=== PATIENT | female | born 1965 | race Caucasian/White ===

== ENCOUNTER 2018-12-19 10:43 | Emergency (ER) | payer BC ==
[2018-12-19] MEDS ORDERED: NA CHLORIDE 0.9% 1,000 ML ONE (12:04)
[2018-12-19 12:11] LABS: Absolute Lymphocytes (CBC) 2.2 K/uL (0.7-4.9); Absolute Monocytes 0.5 K/uL (0.1-1.3); Basophils % 0.6 % (0-1.3); Eosinophils % 3.8 % (0-4.4); Hematocrit 42.5 % (36.0-45.0); Lymphocytes % 31.7 % (15.3-44.8); MPV 7.7 fL (7.6-11.3); Monocytes % 7.5 % (3.3-12.3); RBC Red Blood Cell Count 4.34 M/uL (3.86-4.86)
[2018-12-19 12:24] LABS: ALT/SGPT 26 U/L (12-78); AST/SGOT 19 U/L (15-37); Albumin 3.8 g/dL (3.4-5.0); Alkaline Phosphatase 100 U/L (45-117); BUN Blood Urea Nitrogen 10 mg/dL (7-18); Bicarbonate 25 mmol/L (21-32); Bilirubin Direct 0.1 mg/dL (0-0.2); Bilirubin Total 0.4 mg/dL (0.2-1.0); Glucose Level 102 mg/dL (74-106); Lipase 175 U/L (73-393); Protein, Total 7.7 g/dL (6.4-8.2); Sodium Level 140 mmol/L (136-145)
--- NOTE | 2018-12-19 13:24 | RAD REPORT ---
EXAM DESCRIPTION: CT - Angio Aorta For Dissection - 12/19/2018 12:59 pm CLINICAL HISTORY: Chest pain, abdominal pain and distention, shortness of breath COMPARISON: None. TECHNIQUE: Dynamically enhanced 3 mm thick images of the chest, abdomen, and upper pelvis were obtai elke during administration of approximately 150mL Isovue 370 IV contrast. Sagittal and coronal reconst ruction images were generated using MIP and reviewed. Exam utilizes a protocol to evaluate entire cou rse of the aorta. All CT scans are performed using dose optimization technique as appropriate and may include automated exposure control or mA/KV adjustment according to patient size. FINDINGS: Aorta is normal in diameter with no dissection or other acute aortic findings. Reconstruct ion images show no significant findings. Aortic arch is 3 vessel. No origin stenosis. Imaged portions of the subclavian and axillary arteries are unremarkable. Patient has almost no calcifications in th e aorta. Pulmonary arteries are normal as well. No cardiomegaly, pericardial thickening or pericardial effusio n. No mass or infiltrate in the lung parenchyma. No pleural thickening, pleural effusion or pneumothorax . No abnormal mediastinal or hilar mass or lymphadenopathy seen. No chest wall mass or abnormal axillar y lymphadenopathy. Celiac, SMA and renal arteries show no suspicious findings. Solid abdominal viscera and bowel show no significant findings. Patient has bilateral parapelvic cysts. Patient has moderate diverticulosis of the sigmoid and descending colon. No diverticulitis findings. Numerous pelvic floor phleboliths are present. No mass or abnormal lymphadenopathy. No free air, carly e fluid or inflammatory stranding. No urinary bladder abnormality. Uterus and ovaries show no suspic ious findings. No acute bone finding. Mild lower lumbar degenerative changes are present. IMPRESSION: Negative CT scan of the aorta. No acute findings on chest, abdomen and upper pelvis examination.Full findings detailed in the body o f the report.
[2018-12-19 13:42] LABS: Urine Blood 1+ (NEG); Urine Glucose NEGATIVE (NEG); Urine Protein NEGATIVE (NEG)
[2018-12-19] MEDS ORDERED: HYDROMORPHONE HCL 0.5 MG/0.5 ML INJ ONE ×2 (14:20→16:06)
[2018-12-19 15:00] LABS: Protime INR 0.89
--- NOTE | 2018-12-19 15:04 | RAD REPORT ---
EXAM DESCRIPTION: RAD - Chest Single View - 12/19/2018 2:42 pm CLINICAL HISTORY: Abdominal pain, flank pain COMPARISON: May 2015 TECHNIQUE: AP portable chest image was obtained 1439 hours . FINDINGS: Lungs are clear. Heart and vasculature are normal. No measurable pleural effusion and no p neumothorax. No acute bony abnormality seen. No acute aortic findings suspected. IMPRESSION: No acute cardiopulmonary process. No significant interval change.
[2018-12-19 15:13] LABS: NT PRO-BNP 107 pg/mL (<125); Troponin (Emerg Dept Use Only) < 0.02 ng/mL (0.0-0.045)
[2018-12-19] MEDS ORDERED: NICOTINE 21 MG/PAT TD ONE (15:19)
--- NOTE | 2018-12-19 15:56 | ER ---
Nurse's Notes [facility] Name: Ashlyn Saldana Age: 53 yrs Sex: Female : 1965 Arrival Date: 12/19/2018 Time: 10:47 Bed 15 Private MD: Cortez Rodarte Diagnosis: Strain of muscle and tendon of front wall of thorax Presentation: 12/19 10:53 Presenting complaint: Patient states: pain to RUQ, RLQ radiating to right flank that aa5 began 3 days ago. Pt states "I was getting into the bed and I felt a pop and my pain got worse". Transition of care: patient was not received from another setting of care. Onset of symptoms was November 2018. Risk Assessment: Do you want to hurt yourself or someone else? Patient reports no desire to harm self or others. Care prior to arrival: None. 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 - Social history:: Smoking status: Patient uses tobacco products, smokes one pack cigarettes per day. - Ebola Screening: : No symptoms or risks identified at this time. - Family history:: not pertinent. Screenin:45 Abuse screen: Denies threats or abuse. Denies injuries from another. Nutritional jl7 screening: No deficits noted. Tuberculosis screening: No symptoms or risk factors identified. Fall Risk IV access (20 points). Assessment: 11:45 General: Appears in no apparent distress. uncomfortable, Behavior is calm, cooperative, jl7 appropriate for age. Pain: Complains of pain in right low back and right mid back Pain does not radiate. Pain currently is 10 out of 10 on a pain scale. Neuro: Level of Consciousness is awake, alert, obeys commands, Oriented to person, place, time, situation. Cardiovascular: Heart tones present Patient's skin is warm and dry. Respiratory: Airway is patent Respiratory effort is even, unlabored, Respiratory pattern is regular, symmetrical, Breath sounds are clear bilaterally. GI: Bowel sounds present X 4 quads. Abd is soft and non tender X 4 quads. : No signs and/or symptoms were reported regarding the genitourinary system. EENT: No signs and/or symptoms were reported regarding the EENT system. Derm: Skin is pink, warm \\T\\ dry. Musculoskeletal: No signs and/or symptoms reported regarding the musculoskeletal system. 12:45 Reassessment: Patient appears in no apparent distress at this time. Patient and/or jl7 family updated on plan of care and expected duration. Pain level reassessed. Patient is alert, oriented x 3, equal unlabored respirations, skin warm/dry/pink. Patient states symptoms have improved. 14:10 Reassessment: Pt c/o increased pain, requesting additional pain medication, ERD jl7 notified, see [facility] for orders. 15:40 Reassessment: Dr. Nicholas at bedside discussing plan of care. jl7 Vital Signs: 10:54 BP 108 / 88; Pulse 88; Resp 16 S; Temp 98.9(O); Pulse Ox 97% on R/A; Weight 57.61 kg aa5 (R); Height 5 ft. 0 in. (152.40 cm) (R); Pain 10/10; 12:02 BP 111 / 63; Pulse 86; Resp 18; Temp 98.6(O); Pulse Ox 98% on R/A; Pain 10/10; mh5 13:30 Pulse 67; Resp 16 S; Pulse Ox 97% on R/A; jl7 14:13 BP 103 / 55; Pulse 82; Resp 16; Pulse Ox 98% on R/A; Pain 8/10; mh5 10:54 Body Mass Index 24.80 (57.61 kg, 152.40 cm) aa5 ED Course: 10:47 Patient arrived in ED. mr 10:47 Cortez Rodarte MD is Private Physician. mr 10:53 Triage completed. aa5 10:53 Arm band placed on. aa5 10:58 Anam Nicholas MD is Attending Physician. [facility] 11:19 Palumbo, Jahala, RN is Primary Nurse. jl7 11:57 Patient has correct armband on for positive identification. Placed in gown. Bed in low 5 position. Call light in reach. Side rails up X2. Adult w/ patient. Warm blanket given. Pulse ox on. NIBP on. 11:57 Initial lab(s) drawn, by id, sent to lab. Urine collected: clean catch specimen, clear. 5 Inserted saline lock: 22 gauge in right antecubital area, using aseptic technique. Blood collected. 11:58 Basic Metabolic Panel Sent. 5 11:58 Urine Culture Sent. 5 11:58 Basic Metabolic Panel Sent. [facility] 11:58 CBC with Diff Sent. [facility] 11:58 Creatinine for Radiology Sent. [facility] 11:58 Hepatic Function Sent. [facility] 11:58 Lipase Sent. [facility] 12:59 CT Aorta for Dissection In Process Unspecified. EDMS 14:40 Magnesium Sent. [facility] 14:40 NT PRO-BNP Sent. [facility] 14:40 PT-INR Sent. [facility] 14:40 Troponin (emerg Dept Use Only) Sent. [facility] 14:43 XRAY Chest (1 view) In Process Unspecified. EDMS Administered Medications: 12:05 Drug: NS 0.9% 1000 ml Route: IV; Rate: 1 bolus; Site: right antecubital; jl7 12:13 Drug: TORadol 30 mg Route: IVP; Site: right antecubital; jl7 12:45 Follow up: Response: No adverse reaction; Pain is decreased jl7 12:15 Drug: Zofran 4 mg Route: IVP; Site: right antecubital; jl7 12:45 Follow up: Response: No adverse reaction jl7 12:17 Drug: Dilaudid 0.5 mg Route: IVP; Site: right antecubital; jl7 12:45 Follow up: Response: No adverse reaction; Pain is decreased jl7 14:10 Drug: Dilaudid 0.5 mg Route: IVP; Site: right antecubital; jl7 14:14 Drug: Dilaudid 0.5 mg Route: IVP; Site: right antecubital; jl7 15:00 Follow up: Response: No adverse reaction; Pain is decreased jl7 15:16 Drug: Nicotine 21 mg/24 hr 1 patches {Note: Right upper arm.} Route: Transdermal; Site: jl affected area; Outcome: 15:55 Discharge ordered by MD. bruce 16:37 Patient left the ED. iw Signatures: Dispatcher [employer] Anam Luciano MD MD cha Rivera, Kathi Wendy Cochran RN RN iw Calderon, Audri, RN RN Lesly Matthews Jahala, RN RN jl7
--- NOTE | 2018-12-19 15:57 | EDPHYS ---
Physician Documentation [facility] Name: Ashlyn Saldana Age: 53 yrs Sex: Female : 1965 Arrival Date: 12/19/2018 Time: 10:47 Bed 15 Private MD: Cortez Rodarte ED Physician Anam Nicholas HPI: 12/19 12:10 This 53 yrs old Female presents to ER via Wheelchair with complaints of ajnis Abdominal Pain, Back Pain. 12:10 The patient presents with pain that is acute, with no known mechanism of injury. The janis symptoms are located in the low back, right mid back and right low back. Onset: The symptoms/episode began/occurred just prior to arrival. Location: right mid back and right low back. Associated signs and symptoms: The patient has no apparent associated signs or symptoms. The problem was sustained from unknown cause. Modifying factors: The patient symptoms are alleviated by nothing, remaining still, the patient symptoms are aggravated by any movement, coughing, standing, walking. Severity of symptoms: At their worst the symptoms were moderate, in the emergency department the symptoms are unchanged. The patient has not experienced similar symptoms in the past. 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 - Social history:: Smoking status: Patient uses tobacco products, smokes one pack cigarettes per day. - Ebola Screening: : No symptoms or risks identified at this time. - Family history:: not pertinent. ROS: 12:10 Constitutional: Negative for fever, chills, and weight loss, Eyes: Negative for injury, janis pain, redness, and discharge, ENT: Negative for injury, pain, and discharge, Neck: Negative for injury, pain, and swelling, Cardiovascular: Negative for chest pain, palpitations, and edema, Abdomen/GI: Negative for abdominal pain, nausea, vomiting, diarrhea, and constipation, : Negative for injury, bleeding, discharge, and swelling, MS/Extremity: Negative for injury and deformity, Skin: Negative for injury, rash, and discoloration, Neuro: Negative for headache, weakness, numbness, tingling, and seizure, Psych: Negative for depression, anxiety, suicide ideation, homicidal ideation, and hallucinations, Allergy/Immunology: Negative for hives, rash, and allergies, Endocrine: Negative for neck swelling, polydipsia, polyuria, polyphagia, and marked weight changes, Hematologic/Lymphatic: Negative for swollen nodes, abnormal bleeding, and unusual bruising. 12:10 Respiratory: Positive for cough, pleurisy, shortness of breath. 12:10 Back: Positive for pain with movement, flank pain, on the right. Exam: 12:10 Constitutional: This is a well developed, well nourished patient who is awake, alert, janis and in no acute distress. Head/Face: Normocephalic, atraumatic. Eyes: Pupils equal round and reactive to light, extra-ocular motions intact. Lids and lashes normal. Conjunctiva and sclera are non-icteric and not injected. Cornea within normal limits. Periorbital areas with no swelling, redness, or edema. ENT: Nares patent. No nasal discharge, no septal abnormalities noted. Tympanic membranes are normal and external auditory canals are clear. Oropharynx with no redness, swelling, or masses, exudates, or evidence of obstruction, uvula midline. Mucous membranes moist. Neck: Trachea midline, no thyromegaly or masses palpated, and no cervical lymphadenopathy. Supple, full range of motion without nuchal rigidity, or vertebral point tenderness. No Meningismus. Chest/axilla: Normal chest wall appearance and motion. Nontender with no deformity. No lesions are appreciated. Cardiovascular: Regular rate and rhythm with a normal S1 and S2. No gallops, murmurs, or rubs. Normal PMI, no JVD. No pulse deficits. Respiratory: Lungs have equal breath sounds bilaterally, clear to auscultation and percussion. No rales, rhonchi or wheezes noted. No increased work of breathing, no retractions or nasal flaring. Abdomen/GI: Soft, non-tender, with normal bowel sounds. No distension or tympany. No guarding or rebound. No evidence of tenderness throughout. Female : Normal external genitalia. Skin: Warm, dry with normal turgor. Normal color with no rashes, no lesions, and no evidence of cellulitis. MS/ Extremity: Pulses equal, no cyanosis. Neurovascular intact. Full, normal range of motion. Neuro: Awake and alert, GCS 15, oriented to person, place, time, and situation. Cranial nerves II-XII grossly intact. Motor strength 5/5 in all extremities. Sensory grossly intact. Cerebellar exam normal. Normal gait. Psych: Awake, alert, with orientation to person, place and time. Behavior, mood, and affect are within normal limits. 12:10 Back: pain, that is moderate, ROM is painful, normal spinal alignment noted, CVA tenderness, is absent, vertebral tenderness, is not appreciated. Vital Signs: 10:54 BP 108 / 88; Pulse 88; Resp 16 S; Temp 98.9(O); Pulse Ox 97% on R/A; Weight 57.61 kg aa5 (R); Height 5 ft. 0 in. (152.40 cm) (R); Pain 10/10; 12:02 BP 111 / 63; Pulse 86; Resp 18; Temp 98.6(O); Pulse Ox 98% on R/A; Pain 10/10; mh5 13:30 Pulse 67; Resp 16 S; Pulse Ox 97% on R/A; jl7 14:13 BP 103 / 55; Pulse 82; Resp 16; Pulse Ox 98% on R/A; Pain 8/10; mh5 10:54 Body Mass Index 24.80 (57.61 kg, 152.40 cm) aa5 MDM: 10:58 Patient medically screened. [facility] 12:12 Data reviewed: vital signs, nurses notes, lab test result(s), EKG, radiologic studies, [facility] CT scan, plain films. 12/19 11:39 Order name: Basic Metabolic Panel [facility] 12/19 11:39 Order name: CBC with Diff; Complete Time: 13:23 [facility] 12/19 11:39 Order name: Creatinine for Radiology; Complete Time: 13:23 [facility] 12/19 11:39 Order name: Hepatic Function; Complete Time: 13:23 [facility] 12/19 11:39 Order name: Lipase; Complete Time: 13:23 [facility] 12/19 11:39 Order name: Urine Culture [facility] 12/19 11:40 Order name: Basic Metabolic Panel; Complete Time: 13:23 EDMS 12/19 12:13 Order name: CT Aorta for Dissection; Complete Time: 15:31 janis 12/19 13:28 Order name: Urine Dipstick--Ancillary (enter results); Complete Time: 14:14 bd 12/19 13:28 Order name: Urine --Ancillary (enter results); Complete Time: 14:14 bd 12/19 14:22 Order name: Magnesium; Complete Time: 15: janis 12/19 14:22 Order name: NT PRO-BNP; Complete Time: 15: janis 12/19 14:22 Order name: PT-INR; Complete Time: 15: janis 12/19 14:22 Order name: Troponin (emerg Dept Use Only); Complete Time: 15: janis 12/19 11:39 Order name: IV Saline Lock; Complete Time: 11:58 janis 12/19 11:39 Order name: Labs collected and sent; Complete Time: 11:58 janis 12/19 11:39 Order name: Urine Dipstick-Ancillary (obtain specimen); Complete Time: 11:48 janis 12/19 12:12 Order name: EKG; Complete Time: 12:13 janis 12/19 12:12 Order name: EKG - Nurse/Tech; Complete Time: 13:04 janis 12/19 14:22 Order name: XRAY Chest (1 view); Complete Time: 15: janis 12/19 14:22 Order name: Cardiac monitoring; Complete Time: 14:28 janis 12/19 14:22 Order name: O2 Per Protocol; Complete Time: 14:28 janis 12/19 14:22 Order name: O2 Sat Monitoring; Complete Time: 14:28 janis Administered Medications: 12:05 Drug: NS 0.9% 1000 ml Route: IV; Rate: 1 bolus; Site: right antecubital; jl7 12:13 Drug: TORadol 30 mg Route: IVP; Site: right antecubital; jl7 12:45 Follow up: Response: No adverse reaction; Pain is decreased jl7 12:15 Drug: Zofran 4 mg Route: IVP; Site: right antecubital; jl7 12:45 Follow up: Response: No adverse reaction jl7 12:17 Drug: Dilaudid 0.5 mg Route: IVP; Site: right antecubital; jl7 12:45 Follow up: Response: No adverse reaction; Pain is decreased jl7 14:10 Drug: Dilaudid 0.5 mg Route: IVP; Site: right antecubital; jl7 14:14 Drug: Dilaudid 0.5 mg Route: IVP; Site: right antecubital; jl7 15:00 Follow up: Response: No adverse reaction; Pain is decreased jl7 15:16 Drug: Nicotine 21 mg/24 hr 1 patches {Note: Right upper arm.} Route: Transdermal; Site: jl7 affected area; Disposition: 12/19/18 15:55 Discharged to Home. Impression: Strain of muscle and tendon of front wall of thorax. - Condition is Stable. - Discharge Instructions: Abdominal Pain, Adult, Back Pain, Adult, Abdominal Pain, Adult, [id number], Back Pain, Adult, [id number]. - Prescriptions for Valium 5 mg Oral Tablet - take 1 tablet by ORAL route every 8 hours As needed; 20 tablet. Tramadol 50 mg Oral Tablet - take 1 tablet by ORAL route every 8 hours as needed; 30 tablet. Motrin IB 200 mg Oral Tablet - take 2 tablet by ORAL route every 6 hours As needed as needed with food; 30 tablet. - Medication Reconciliation Form, Thank You Letter, Antibiotic Education, Prescription Opioid Use form. - Follow up: Private Physician; When: 2 - 3 days; Reason: Recheck today's complaints, Continuance of care, Re-evaluation by your physician. - Problem is new. - Symptoms have improved. Signatures: Dispatcher [employer] EDTX Anam Nicholas MD MD cha Williams, Irene RN Honey Frausto RN RN aa5 Quang Palumbo RN RN jl7 Corrections: (The following items were deleted from the chart) 16:37 15:55 12/19/2018 15:55 Discharged to Home. Impression: Strain of muscle and tendon of iw front wall of thorax. Condition is Stable. Forms are Medication Reconciliation Form, Thank You Letter, Antibiotic Education, Prescription Opioid Use. Follow up: Private Physician; When: 2 - 3 days; Reason: Recheck today's complaints, Continuance of care, Re-evaluation by your physician. Problem is new. Symptoms have improved. janis
--- NOTE | 2018-12-19 17:28 | EKG ---
Test Date: 2018-12-19 Test Time: 12:32:59 Senior Media Planner: LAURENT MEASUREMENT RESULTS: Intervals: Rate: 77 RI: 176 QRSD: 70 QT: 368 QTc: 416 [place]: P: 57 RI: 176 QRS: 66 T: 66 INTERPRETIVE STATEMENTS: Normal sinus rhythm Normal ECG No previous ECG available for comparison Electronically Signed On 12-19-18 17:27:04 CDT by iMnh Calloway
== END 2018-12-19 16:37 | disposition home or self-care (01) ==
LOC: ER 10:43
DX: S29.011A Strain of muscle and tendon of front wall of thorax, initial encounter (principal); F17.210 Nicotine dependence, cigarettes, uncomplicated; Z88.0 Allergy status to penicillin; Z88.5 Allergy status to narcotic agent
CPT/HCPCS: 36415; 71045; 71275; 74175; 80048; 80076; 81003; 81025; 83690; 83735; 83880; 84484; 85025; 85610; 87086; 87088; 93005; 96374; 96375; 99284; J1170; J7030; Q9967

== ENCOUNTER 2022-11-27 00:08 | Emergency (ER) | payer BC, OTHER ==
--- OUTSIDE RECORDS SUMMARY | 2022-11-27 00:17 | XMS REPORT | Clinical Summary ---
:1965 Author Organization [facility] MD [facility] Address [address] [place] [address] Care Team Providers Name Role Phone Cortez Rodarte MD Unavailable Unavailable Sade Verdugo MD Primary Care Provider [phone] Allergies Active Allergy Reactions Severity Noted Date Comments Codeine Itching, Palpitations, High 05/06/2020 Shortness Of Breath, Swelling Morphine Hives, Itching, Other (See High 05/10/2020 Comments), Palpitations, Shortness Of Breath, Swelling Penicillin Diarrhea, Hives, Itching, High 05/10/2020 Palpitations, Shortness Of Breath, Swelling Propoxyphene N-Acetaminophen Anxiety, Hives, Itching, High 05/10/2020 Palpitations, Shortness Of Breath, Swelling Medications Medication Sig Dispensed Refills Start Date End Date Status Vitamin D2 1,250 mcg TAKE ONE (1) 0 02/16/2020 Active (50,000 unit) capsule CAPSULE(S) BY MOUTH EVERY 7 DAYS. phentermine (ADIPEX-P) TAKE ONE (1) 0 04/30/2020 Active 37.5 mg tablet TABLET(S) BY MOUTH ONCE A DAY. Active Problems Problem Noted Date Lump in right breast 05/17/2020 Surgical History Surgery Date Site/Laterality Comments APPENDECTOMY 09/27/1992 - 09/26/1993 CHOLECYSTECTOMY 09/27/2012 - 09/26/2013 REDUCTION MAMMAPLASTY 09/27/2013 - 09/26/2014 Bilateral Medical History Medical History Date Comments Unspecified lump in unspecified breast Aug Polyp of colon Begnign Renal stone 2016 Diabetes mellitus 2017 Anxiety 2019 Family History Medical History Relation Name Comments Breast cancer Brother Akil rangel afte r 9 months of diagnosis of non manny lymphoma at age ,31 Lymphoma Brother Akil rangel with in few months of dianosis Lung cancer Maternal Grandfather Diego pena Passed at a ge 67 Breast cancer Mother Angel rodriguez afte r only six months of diagnosis of non manny lymphoma at age 58 Lymphoma Mother Angel rodriguez with in few months of diagnosis Breast cancer Paternal Aunt Lizbeth york Passed at age 62 Relation Name Status Comments Brother Akil rangel Maternal Grandfather Diego pena Mother Angel rodriguez Paternal Aunt Lizbeth york Social History Tobacco Use Types Packs/Day Years Used Date Smoking Tobacco: Every Day Cigarettes 0.5 28 Tobacco Cessation: Ready to Quit: No Alcohol Use Standard Drinks/Week Comments Not Currently 0 (1 standard drink = 0.6 oz pure alcoho l) Sex Assigned at Date Recorded Not on file Obstetrics History Para Term AB IAB SAB Ectopic Multiple Living Live Births 6 2 4 3 1 Date Outcome GA Total Labor/2nd/3rd Weight Sex Delivery Anes PTL Anita A 1 A5 Name Clin Labor Para Para Ectopic SAB SAB SAB Comments Menarche - age 17 Menopause - age 49 Parity - age 22, - none OCP - none Hormones - none Last Filed Vital Signs Not on file Plan of Treatment Health Maintenance Due Date Last Done Comments COVID-19 Vaccination (#1) 01/19/1967 Results Not on fileafter 11/27/2021 Insurance Payer Benefit Plan / Subscriber ID Effective Dates Phone Addre ss Type Group [place] [id number] 2017-Present PO JSOH X [id number] O [employer]UE [employer] [place] [employer] [id number] Care Teams 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
--- OUTSIDE RECORDS SUMMARY | 2022-11-27 00:18 | XMS REPORT | Continuity of Care Document ---
:1965 Author Organization Formerly [facility] t Address [address] [facility] [address] [place] [address] Care Team Providers Name Role Phone Clive GEIGER, Janis Grady Primary Care Physician [phone] Rj Helms Attending Clinician Unavailable SYSTEM, PROVIDER NOT IN Attending Clinician Unavailable RJ HELMS Attending Clinician Unavailable LAB90 Attending Clinician Unavailable JANIS PRUITT Attending Clinician Unavailable Janis Pruitt MD Attending Clinician [phone] CONNIE KEYS Attending Clinician Unavailable Payers Payer Name Policy Type Policy Number Effective Date Expiration Date [facility] [id number] 2021 [place] (ERS-BCBS 00:00:00 CAPITATED) [id number] 2017 BLUE/BLUE ESSENTIALS 00:00:00 Problems Condition Condition Condition Status Onset Resolution Last Treating Co mments Source Name Details Category Date Date Treatment Clinician Date Ganglion Ganglion Disease Active 2021-09 Kelse y cyst of cyst of 0-04 Seybold wrist, wrist, 00:00: - right right 00 Externa l 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 No known No known Disease Kelse y active active Seybold problems problems Allergies, Adverse Reactions, Alerts Allergy Allergy Status Severity Reaction(s) Onset Inactive Treating Comm ents Source Name Type Date Date Clinician Morphine Propensi Active Swelling 2020-0 Univ ers ty to 8-14 ity of adverse 00:00: [place] reaction 00 MD laureen fernández [facility] Penicill Propensi Active Swelling 2020-0 Univ ers in ty to 814 ity of adverse 00:00: [place] reaction 00 [facility] Propoxyp Propensi Active Swelling 2020-0 Univ ers hene ty to 8 ity of N-Acetam adverse 00:00: [place] inophen reaction 00 MD laureen fernández [facility] Penicill Propensi Active Swelling 2020-0 Juhi ey in G ty to 05-10 Seybold adverse 00:00: - reaction 00 Externa s l Propoxyp Propensi Active Swelling 2020-0 Juhi ey hene ty to 8 Seybold adverse 00:00: - reaction 00 Externa s l Codeine Propensi Active Swelling 2020-0 Unive rs ty to 8-10 ity of adverse 00:00: [place] reaction 00 MD laureen fernández [facility] Family History Family Member Diagnosis Comments Start Date Stop Date Source Natural brother Breast cancer [facility] Natural brother Lymphoma [facility] Maternal grandfather Lung cancer [facility] Natural mother Breast cancer [facility] Natural mother Lymphoma [facility] Paternal aunt Breast cancer [facility] Social History Social Habit Start Date Stop Date Quantity Comments Source History of tobacco Cigarette Smoker Jesenia John - use External Exposure to Not sure Jesenia koroma SARS-CoV-2 (event) Tobacco use and 2021-05-14 2021-05-14 Smokeless Jesenia valencia - exposure 00:00:00 00:00:00 tobacco non-user External Alcohol intake 2020-05-20 2020-05-20 Ex-[facility] of 00:00:00 00:00:00 (finding) [facility] Cigarette 2020-05-17 2020-05-17 University of pack-years 00:00:00 00:00:00 [place] MD Eulalio gregory [facility] Cigarettes smoked 2020-05-17 2020-05-17 Univers ity of current (pack per 00:00:00 00:00:00 [place] Ellen Negra ) - Reported Cancer Ce nter Sex Ass[birth year] At [birth year] [facility] 00:00:00 00:00:00 [place] MD Eulalio gregory [facility] Smoking Status Start Date Stop Date Source Smokes tobacco daily 2021-05-14 00:00:00 Jesenia Seybold - External Medications Ordered Filled Start Stop Current Ordering Indication Dosage Frequency Signature Comments Components Source Medication Medication Date Date Medication? Clinician (SIG) Name Name Tramadol Yes [id number] 50mg Q.[id number] Take 1 Jesenia HCl 50 MG 06-18 [id number] tablet (50 Seybold oral Tablet 00:00: 3D mg total) - 00 by mouth Externa every 8 l hours as needed for pain Escitalopra Yes [id number] 10mg Take 1 Jesenia m Oxalate 9-22 tablet (10 Seyb old 10 MG oral 00:00: mg total) - Tablet 00 by mouth Externa daily l Escitalopra Yes [id number] 10mg Take 1 Jesenia m Oxalate 9-22 tablet (10 Seyb old 10 MG oral 00:00: mg total) - Tablet 00 by mouth Externa daily l Tramadol 2021- No [id number] 50mg Q.[id number] Take 1 Jesenia HCl 50 MG -18 07-04 [id number] tablet (50 Seybold oral Tablet 00:00: 00:00 3D mg total) - 00 :00 by mouth Externa every 8 l hours as needed for pain Azithromyci 2021- No [id number] Take 2 Jesenia n 250 MG 06-18-28 tablets by Seyb old oral Tablet 00:00: 04:59 mouth on - 00 :00 day 1 then Externa 1 tablet l by mouth daily for 4 days thereafter . Nitrofurant Yes [id number] 100mg Take 1 Jesenia oin Monohyd 4-08 capsule Seybo ld Macro 100 00:00: (100 mg MG oral 00 total) by Capsule mouth in the morning and 1 capsule (100 mg total) in the evening. Nitrofurant 2021- No [id number] 100mg Take 1 Jesenia oin Monohyd 4-04 30- capsule Seyb old Macro 100 00:00: 00:00 (100 mg MG oral 00 :00 total) by Capsule mouth in the morning and 1 capsule (100 mg total) in the evening. Escitalopra Yes [id number] 10mg Take 1 Jesenia m Oxalate 4-06 tablet (10 Seyb old 10 MG oral 00:00: mg total) Tablet 00 by mouth daily Ibuprofen Yes [id number] 800mg Q.[id number] Take 1 Jesenia 800 MG oral - [id number] tablet Seybold Tablet 00:00: 3D (800 mg 00 total) by mouth every 8 hours as needed for pain Escitalopra Yes [id number] 10mg Take 1 Jesenia m Oxalate 4-06 tablet (10 Seyb old 10 MG oral 00:00: mg total) Tablet 00 by mouth daily Ibuprofen 0 Yes [id number] 800mg Q.[id number] Take 1 Jesenia 800 MG oral 4- [id number] tablet Seybold Tablet 00:00: 3D (800 mg 00 total) by mouth every 8 hours as needed for pain Etodolac 2021-0 Yes 400mg Take 400 Juhi ey 400 MG oral 4-06 mg by Seybold Tablet 00:00: mouth in 00 the morning and 400 mg in the evening. Escitalopra 2021- No [id number] 10mg Take 1 Jesenia m Oxalate 4-02 28- tablet (10 Sey bold 10 MG oral 00:00: 00:00 mg total) Tablet 00 :00 by mouth daily Ibuprofen 2021- No [id number] 800mg Q.[id number] Take 1 Jesenia 800 MG oral -02 28- [id number] tablet Seybold Tablet 00:00: 00:00 3D (800 mg 00 :00 total) by mouth every 8 hours as needed for pain Etodolac 2021-2021- No 400mg Take 400 [place] sey 400 MG oral 12-31 04-21 mg by Seybol d Tablet 00:00: 00:00 mouth in 00 :00 the morning and 400 mg in the evening. Etodolac 2020-09 No [id number] TAKE ONE Jesenia 400 MG oral 10-15- (1) Seybold Tablet 00:00: 00:00 TABLET(S) 00 :00 BY MOUTH TWICE A DAY. Etodolac 2020-09 Yes [id number] 400mg Take 1 K elsey 400 MG oral 0-22 tablet Seybol d Tablet 00:00: (400 mg 00 total) by mouth 2 times daily Phentermine 2020-09 Yes [id number] 37.5mg Take 1 Jesenia HCl 37.5 MG 0-22 tablet Seybol d oral Tablet 00:00: (37.5 mg 00 total) by mouth daily Etodolac 2020-09 Yes [id number] 400mg Take 1 K elsey 400 MG oral 0-22 tablet Seybol d Tablet 00:00: (400 mg 00 total) by mouth 2 times daily Phentermine 2020-09 Yes [id number] 37.5mg Take 1 Jesenia HCl 37.5 MG 0-22 tablet Seybol d oral Tablet 00:00: (37.5 mg 00 total) by mouth daily Phentermine 2020-09 Yes [id number] 37.5mg Take 1 Jesenia HCl 37.5 MG 0-22 tablet Seybol d oral Tablet 00:00: (37.5 mg 00 total) by mouth daily Phentermine Yes [id number] 37.5mg Take 1 Jesenia HCl 37.5 MG 9-22 tablet Seybol d oral Tablet 00:00: (37.5 mg 00 total) by mouth daily Phentermine No [id number] 37.5mg Take 1 Jesenia HCl 37.5 MG 9-22 10-22 tablet Seybo ld oral Tablet 00:00: 00:00 (37.5 mg 00 :00 total) by mouth daily Phentermine No [id number] 37.5mg Take 1 Jesenia HCl 37.5 MG 8-18 09-22 tablet Seybo ld oral Tablet 00:00: 00:00 (37.5 mg 00 :00 total) by mouth daily phentermine 2020-0 Yes TAKE ONE Un ana maria (ADIPEX-P) 8-04 (1) ity of 37.5 mg 00:00: TABLET(S) [place] tablet 00 BY MOUTH ONCE A Anderso DAY. [facility] Ergocalcife 2020-0 Yes 1{capsu Take 1 K elsey rol 1.25 MG 5-22 le} capsule by Se valencia ([id number] UT) 00:00: mouth oral 00 daily Capsule Ergocalcife 2020-0 Yes 1{capsu Take 1 K elsey rol 1.25 MG 5-22 le} capsule by Se valencia ([id number] UT) 00:00: mouth oral 00 daily Capsule Vitamin D2 2019-0 Yes TAKE ONE Uni vers 1,250 mcg 5-22 (1) ity of (50,000 00:00[place] 00 BY MOUTH capsule EVERY 7 Anderso DAYS. [facility] Ergocalcife 2020-0 2021- No 1{capsu Take 1 Jesenia rol 1.25 MG 5-22 10-29 le} capsule by Laureen lagos ([id number] UT) 00:00: 00:00 mouth oral 00 :00 daily Capsule Vital Signs Vital Name Observation Time Observation Value Comments Source Systolic blood 2022-06-30 16:13:00 108 mm[Hg] Jesenia John - pressure External Diastolic blood 2022-06-30 16:13:00 67 mm[Hg] Saul John - pressure External Heart rate 2022-06-30 16:13:00 86 /min Jesenia lagos - External Body temperature 2022-06-30 16:13:00 37.22 Franny Juhi John - External Respiratory rate 2022-06-30 16:13:00 14 /min Juhi John - External Body height 2022-06-30 16:13:00 152.4 cm Jesenia lagos - External Body weight 2022-06-30 16:13:00 58.423 kg Jesenia lagos - External BMI 2022-06-30 16:13:00 25.15 kg/m2 Jesenia lagos - External Oxygen saturation in 2022-06-30 16:13:00 99 /min Jesenia Seybold - Arterial blood by External Pulse oximetry Systolic blood 2022-06-18 14:43:00 114 mm[Hg] Jesenia Seybold - pressure External Diastolic blood 2022-06-18 14:43:00 74 mm[Hg] Kelse y Seybold - pressure External Heart rate 2022-06-18 14:43:00 113 /min Jesenia S eybold - External Body temperature 2022-06-18 14:43:00 36.39 Franny Juhi ey Seybold - External Respiratory rate 2022-06-18 14:43:00 14 /min Juhi ey Seybold - External Body height 2022-06-18 14:43:00 152.4 cm Jesenia S eybold - External Body weight 2022-06-18 14:43:00 59.421 kg Jesenia S eybold - External BMI 2022-06-18 14:43:00 25.58 kg/m2 Jesenia S eybold - External Systolic blood 2022-01-15 15:38:00 138 mm[Hg] Jesenia Seybold pressure Diastolic blood 2022-01-15 15:38:00 74 mm[Hg] Kelse y Seybold pressure Heart rate 2022-01-15 15:38:00 113 /min Jesenia S eybold Body temperature 2022-01-15 15:38:00 37.28 Franny Juhi ey Seybold Respiratory rate 2022-01-15 15:38:00 14 /min Juhi ey Seybold Body height 2022-01-15 15:38:00 152.4 cm Jesenia S eybold Body weight 2022-01-15 15:38:00 62.143 kg Jesenia S eybold BMI 2022-01-15 15:38:00 26.76 kg/m2 Jesenia S eybold Systolic blood 2022-01-07 15:33:00 134 mm[Hg] Jesenia Seybold pressure Diastolic blood 2022-01-07 15:33:00 84 mm[Hg] Kelse y Seybold pressure Heart rate 2022-01-07 15:33:00 118 /min Jesenia S eybold Body temperature 2022-01-07 15:33:00 36.06 Franny Juhi ey Seybold Respiratory rate 2022-01-07 15:33:00 16 /min Juhi ey Seybold Body height 2022-01-07 15:33:00 152.4 cm Jesenia S eybold Body weight 2022-01-07 15:33:00 62.143 kg Jesenia S eybold BMI 2022-01-07 15:33:00 26.76 kg/m2 Jesenia S eybold Systolic blood 2021-12-31 15:50:00 148 mm[Hg] Jesenia Seybold pressure Diastolic blood 2021-12-31 15:50:00 82 mm[Hg] Kelse y Seybold pressure Heart rate 2021-12-31 15:50:00 119 /min Jesenia S eybold Body temperature 2021-12-31 15:50:00 37 Franny Juhi ey Seybold Respiratory rate 2021-12-31 15:50:00 15 /min Juhi ey Seybold Body height 2021-12-31 15:50:00 152.4 cm Jesenia S eybold Body weight 2021-12-31 15:50:00 61.689 kg Jesenia S eybold BMI 2021-12-31 15:50:00 26.56 kg/m2 Jesenia S eybold Systolic blood 2021-07-25 18:57:00 142 mm[Hg] Jesenia Seybold pressure Diastolic blood 2021-07-25 18:57:00 92 mm[Hg] Kelse y Seybold pressure Heart rate 2021-07-25 18:57:00 124 /min Jesenia S eybold Body temperature 2021-07-25 18:57:00 36.39 Franny Juhi ey Seybold Respiratory rate 2021-07-25 18:57:00 14 /min Juhi ey Seybold Body height 2021-07-25 18:57:00 152.4 cm Jesenia S eybold Body weight 2021-07-25 18:57:00 60.328 kg Jesenia S eybold BMI 2021-07-25 18:57:00 25.97 kg/m2 Jesenia S eybold Heart rate 2021-07-18 17:28:00 98 /min Jesenia S eybold Systolic blood 2021-07-18 16:00:00 140 mm[Hg] Jesenia Seybold pressure Diastolic blood 2021-07-18 16:00:00 87 mm[Hg] Kelse y Seybold pressure Body temperature 2021-07-18 16:00:00 37.17 Franny Juhi ey Seybold Respiratory rate 2021-07-18 16:00:00 14 /min Juhi ey Seybold Body height 2021-07-18 16:00:00 152.4 cm Jesenia S eybold Body weight 2021-07-18 16:00:00 60.646 kg Jesenia S eybold BMI 2021-07-18 16:00:00 26.11 kg/m2 Jesenia S eybold Systolic blood 2021-06-18 15:51:00 134 mm[Hg] Jesenia Seybold pressure Diastolic blood 2021-06-18 15:51:00 88 mm[Hg] Kelse y Seybold pressure Heart rate 2021-06-18 15:51:00 105 /min Jesenia mccormackbopia Body temperature 2021-06-18 15:51:00 37.33 Franny Juhi ey Seybold Respiratory rate 2021-06-18 15:51:00 14 /min Juhi ey Seybold Body height 2021-06-18 15:51:00 152.4 cm Jesenia S eybold Body weight 2021-06-18 15:51:00 61.054 kg Jesenia Starks eybold BMI 2021-06-18 15:51:00 26.29 kg/m2 Jesenia mccormackbold Oxygen saturation in 2021-06-18 15:51:00 95 /min Jesenia John Arterial blood by Pulse oximetry HEIGHT 2020-05-10 09:01:00 152.5 cm WEIGHT 2020-05-10 09:01:00 62.2 kg Procedures Procedure Date / Time Performed Performing Clinician [facility] e REFERRAL TO ORTHOPEDICS- 2021-07-25 19:45:00 Janis Pruitt EXTERNAL Plan of Care Planned Activity Planned Date Details Comments Source Future Scheduled 2022-04-01 COVID-19 Vaccination [facility] [place] Test 06:58:21 (#1) [code = COVID-19 And mickie Cancer Vaccination (#1)] Center Encounters Start End Encounter Admission Attending Care Care Encounter Source Date/Time Date/Time Type Type Clinicians Facility Department ID 2022-07-16 Outpatient Prezas, [facility]ELC [facility] [id number] Common 16:02:01 Rj [id number] [facility] 2022-06-30 Outpatient STLMLC [facility] Common 13:17:01 [facility] 2021-12-25 Outpatient STLC [facility] [id number] Common 07:07:00 [facility] 2021-10-22 Outpatient [facility] Common 14:19:42 [id number] [facility] 2020-05-02 Outpatient SYSTEM, LYUBOV MCARTHUR [id number] 11:46:32 PROVIDER Paolo fernández 2022-10-16 2022-10-16 Outpatient PREJESENIA NUNEZ [id number] Jesenia 08:15:00 08:15:00 RJ Seybol d 2022-07-16 2022-07-16 Outpatient JESENIA HELMS [id number] Jesenia 09:45:00 09:45:00 RJ Seybol d 2022-07-02 2022-07-02 Outpatient JESENIA HELMS [id number] Jesenia 00:00:00 00:00:00 RJ Seybol d 2022-06-30 2022-06-30 Outpatient JESENIA HELMS [id number] Jesenia 11:15:00 11:15:00 RJ Seybol d 2022-06-18 2022-06-18 Outpatient LAB90 JESENIA WILKERSON [id number] Jesenia 10:25:00 10:25:00 Seybol d 2022-06-18 2022-06-18 Outpatient JESENIA HELMS [id number] Jesenia 09:45:00 09:45:00 RJ Seybol d 2022-03-31 2022-03-31 Outpatient JESENIA PRUITT [id number] Jesenia 00:00:00 00:00:00 JANIS Seybol d 2022-01-15 2022-01-15 Outpatient LAB90 JESENIA WILKERSON [id number] Jesenia 11:30:00 11:30:00 Seybol d 2022-01-15 2022-01-15 Office Juice Pruitt [id number] Jesenia 10:45:00 11:15:00 Visit Janis Mix 350.1.13.13 Se ybold Somogyi [id number] 2022-01-07 2022-01-07 Office Juice Pruitt [id number] Jesenia 10:30:00 10:45:00 Visit Janis Mix 350.1.13.13 Se ybold Somogyi 1.2.7.2.686 [id number] 2021-12-31 2021-12-31 Outpatient LAB90 JESENIA WILKERSON [id number] Jesenia 11:40:00 11:40:00 Seybol d 2021-12-31 2021-12-31 Office Juice Pruitt [id number] Jesenia 10:45:00 11:15:00 Visit Janis Mix 350.1.13.13 Se ybold Somogyi 1.2.7.2.686 [id number] 2021-12-30 2021-12-30 Outpatient JESENIA PRUITT [id number] Jesenia 00:00:00 00:00:00 JANIS Seybol d 2021-08-14 2021-08-14 Outpatient JESNEIA PRUITT [id number] Jesenia 00:00:00 00:00:00 JANIS Seybol d 2021-07-25 2021-07-25 Office Juice Pruitt [id number] Jesenia 13:53:31 14:23:31 Visit Janis Mix 350.1.13.13 Se ybold Somogyi 1.2.7.2.686 [id number] 2021-07-18 2021-07-18 Outpatient LAB90 JESENIA WILKERSON [id number] Jesenia 11:45:00 11:45:00 Seybol d 2021-07-18 2021-07-18 Office Juice Pruitt [id number] Jesenia 10:51:39 11:21:39 Visit Janis Mix 350.1.13.13 Se erik Haroogyi 1.2.7.2.686 [id number] 2021-07-16 2021-07-16 Outpatient JESENIA PRUITT [id number] Jesenia 11:00:00 11:00:00 JANIS Seybol d 2021-06-18 2021-06-18 Office Juice Pruitt [id number] Jesenia 10:46:13 11:16:13 Visit Janis Mix 350.1.13.13 Se erik Haroogyi 1.2.7.2.686 [id number] 2021-06-17 2021-06-17 Outpatient JESENIA PRUITT [id number] Jesenia 11:00:00 11:00:00 JANIS jaclynol d 2021-05-14 2021-05-14 Outpatient JESENIA PRUITT [id number] Jesenia 10:00:00 10:00:00 JANIS Barretool d 2021-03-10 2021-03-10 Outpatient COH COH PENFGQN XVG COH 00:00:00 00:00:00 [id number] 2020-05-10 2020-05-10 Outpatient EL MDA MDA [id number] 13:22:11 13:22:11 Paolo o jolene 2020-05-10 2020-05-10 Outpatient EL MDA MDA [id number] 12:40:32 12:40:32 Paolo o jolene 2020-05-10 2020-05-10 Outpatient EL REFINETTI, MDA MDA [id number] 08:50:36 11:28:09 CONNIE Paolo o jolene 2020-05-10 2020-05-10 Outpatient EL REFINETTI, MDA MDA [id number] 09:21:38 09:21:38 CONNIE Paolo o jolene 2020-05-10 2020-05-10 Outpatient EL REFINETTI, MDA MDA [id number] 09:21:35 09:21:35 CONNIE Paolo o jolene 2020-05-10 2020-05-10 Outpatient EL MDA MDA [id number] 08:47:03 08:54:56 Paolo o jolene 2020-05-10 2020-05-10 Outpatient EL LYUBOV MDA [id number] 00:00:00 00:00:00 Paolo fernández 2020-05-07 2020-05-07 Outpatient EL LYUBOV KEYS MDA [id number] 08:35:21 08:35:21 CONNIE fernández Results This patient has no known results.
[2022-11-27] MEDS ORDERED: ALBUTEROL 2.5 MG/3 ML NEB SOL ONE ×3 (01:32→02:54)
[2022-11-27] MEDS ORDERED: IPRATROPIUM BROM 0.5MG/2.5ML ONE ×2 (01:32→02:52)
[2022-11-27] MEDS ORDERED: METHYLPREDNISOLONE 125 MG INJ ONE (01:32)
[2022-11-27] MEDS ORDERED: KETOROLAC 30 MG/ML INJ ONE (01:32)
[2022-11-27 01:57] LABS: Absolute Lymphocytes (CBC) 5.5 K/uL (0.7-4.9); Hematocrit 44.1 % (36.0-45.0); Lymphocytes % 51.5 % (15.3-44.8); MCV 97.3 fL (80-100); MPV 6.8 fL (7.6-11.3); RBC Red Blood Cell Count 4.53 M/uL (3.86-4.86)
[2022-11-27 02:23] LABS: Albumin 3.9 g/dL (3.4-5.0); Bilirubin Total 0.2 mg/dL (0.2-1.0); Protein, Total 8.1 g/dL (6.4-8.2); Troponin High Sensitivity 7.2 pg/mL (<58.9)
[2022-11-27 02:24] LABS: Potassium 3.6 mmol/L (3.5-5.1)
--- NOTE | 2022-11-27 02:49 | ER ---
Nurse's Notes [facility] Name: Ashlyn Saldana Age: 57 yrs Sex: Female : 1965 Arrival Date: 11/27/2022 Time: 00:12 Bed 26 Private MD: Diagnosis: Acute bronchitis, unspecified Presentation: 11/27 00:35 Chief complaint: Patient states: "Feel short of breath.". Coronavirus screen: Vaccine vc1 status: Patient reports receiving the 2nd dose of the covid vaccine. [employer] Client denies travel out of the [place] in the last 14 days. shortness of breath, Client presents with at least one sign or symptom that may indicate coronavirus-19. Standard/surgical mask placed on the client. Provider contacted for isolation considerations. Ebola Screen: Patient negative for fever greater than or equal to 101.5 degrees Fahrenheit, and additional compatible Ebola Virus Disease symptoms Patient denies exposure to infectious person. Patient denies travel to an Ebola-affected area in the 21 days before illness onset. No symptoms or risks identified at this time. Initial Sepsis Screen: Does the patient meet any 2 criteria? RR > 20 per min. HR > 90 bpm. Yes Does the patient have a suspected source of infection? No. Patient's initial sepsis screen is negative. Risk Assessment: Do you want to hurt yourself or someone else? Patient reports no desire to harm self or others. Onset of symptoms was November 27, 2022. 00:35 Method Of Arrival: Ambulatory vc1 00:35 Acuity: HITESH 2 vc1 Triage Assessment: 00:41 General: Appears in no apparent distress. uncomfortable, Behavior is cooperative. Pain: vc1 Complains of pain in chest. Respiratory: Reports shortness of breath air hunger labored breathing Onset: The symptoms/episode began/occurred gradually, the patient has moderate shortness of breath. Respiratory: Airway is patent Respiratory effort is labored, Respiratory pattern is symmetrical. Historical: - Allergies: 00:40 Codeine; vc1 00:40 Darvocet-N 100; vc1 00:40 Morphine; vc1 00:40 PENICILLINS; vc1 - Home Meds: 00:40 None [Active]; vc1 - PMHx: 00:40 abscess; Tachycardia; vc1 - PSHx: 00:40 None; vc1 - Immunization history:: Client reports receiving the 2nd dose of the Covid vaccine. - Social history:: Smoking status: Patient reports the use of cigarette tobacco products, smokes one pack cigarettes per day. - Family history:: not pertinent. Screenin:43 [facility] ED Fall Risk Assessment (Adult) History of falling in the last 3 months, pf1 including since admission No falls in past 3 months (0 pts) Confusion or Disorientation No (0 pts) Intoxicated or Sedated No (0 pts) Impaired Gait No (0 pts) Mobility Assist Device Used No (0 pt) Altered Elimination No (0 pt) Score/Fall Risk Level 0 - 2 = Low Risk Oriented to surroundings, Maintained a safe environment, Educated pt \\T\\ family on fall prevention, incl call for assistance when getting out of bed, Assessed \\T\\ reinforced patient's understanding of fall precautions, Provided non-skid footwear, Hourly rounding (assess needs \\T\\ fall precautionary measures) done, Used ambulatory aids as needed (educated on \\T\\ assisted with), Used gait belt as appropriate. 00:43 Abuse screen: Denies threats or abuse. Nutritional screening: No deficits noted. pf1 Tuberculosis screening: No symptoms or risk factors identified. Assessment: 00:43 General: Appears in no apparent distress. comfortable, well developed, Behavior is pf1 cooperative, appropriate for age, anxious, restless. 00:43 Pain: Pain currently is 7 out of 10 on a pain scale. Aggravated by coughing. Neuro: No pf1 deficits noted. Level of Consciousness is awake, alert, obeys commands, Oriented to person, place, time, situation. Cardiovascular: Capillary refill < 3 seconds Patient's skin is warm and dry. Chest pain. Respiratory: Airway is patent Trachea midline Respiratory effort is even, unlabored, Respiratory pattern is regular, symmetrical, Breath sounds are diminished bilaterally. Breath sounds with wheezes bilaterally. GI: No deficits noted. Abdomen is round non-distended, Bowel sounds present X 4 quads. : No deficits noted. No signs and/or symptoms were reported regarding the genitourinary system. EENT: No deficits noted. No signs and/or symptoms were reported regarding the EENT system. Derm: No deficits noted. No signs and/or symptoms reported regarding the dermatologic system. 01:00 Cardiovascular: Rhythm is sinus tachycardia. pf1 01:40 Reassessment: Patient appears in no apparent distress at this time. No changes from pf1 previously documented assessment. Patient is alert, oriented x 3, equal unlabored respirations, skin warm/dry/pink. Patient states symptoms have improved. 02:40 Reassessment: Patient appears in no apparent distress at this time. Patient and/or pf1 family updated on plan of care and expected duration. Pain level reassessed. Patient is alert, oriented x 3, equal unlabored respirations, skin warm/dry/pink. Patient states feeling better. Patient states symptoms have improved. Vital Signs: 00:35 BP 97 / 56; Pulse 114; Resp 18; Temp 98.7; Pulse Ox 98% ; Weight 59.42 kg; Height 5 ft. vc1 0 in. (152.40 cm); 01:00 BP 142 / 105; Pulse 91; Resp 20; Pulse Ox 96% on R/A; Pain 7/10; pf1 02:00 BP 107 / 68; Pulse 102; Resp 20; Pulse Ox 97% on R/A; Pain 7/10; pf1 02:55 BP 109 / 72; Pulse 93; Resp 18; Temp 98.2; Pulse Ox 100% on R/A; Pain 0/10; pf1 00:35 Body Mass Index 25.58 (59.42 kg, 152.40 cm) vc1 ED Course: 00:12 Patient arrived in ED. ja2 00:40 Triage completed. vc1 00:40 Alejandro Gilbert MD is Attending Physician. rt 00:41 Arm band placed on left wrist. vc1 01:00 Patient has correct armband on for positive identification. Bed in low position. Call pf1 light in reach. 01:50 Inserted saline lock: 22 gauge in right antecubital area, using aseptic technique. oe Blood collected. 02:16 BNP Sent. pf1 02:16 Troponin High Sensitivity Sent. pf1 02:16 D-Dimer Sent. pf1 02:16 CMP Sent. pf1 02:16 CBC with Diff Sent. pf1 02:55 No provider procedures requiring assistance completed. IV discontinued, intact, pf1 bleeding controlled, No redness/swelling at site. Pressure dressing applied. Administered Medications: 01:30 Drug: DuoNeb (albuterol 2.5 mg, ipratropium 0.5 mg) (3:1) (2.5 mg - 0.5 mg) 3 ml Route: pf1 Nebulizer; 02:17 Follow up: Response: No adverse reaction; Marked relief of symptoms pf1 01:55 Drug: SOLU-Medrol (methylPrednisoLONE) 125 mg Route: IVP; Site: right antecubital; pf1 02:17 Follow up: Response: No adverse reaction; Marked relief of symptoms pf1 01:55 Drug: Ketorolac 15 mg Route: IVP; Site: right antecubital; pf1 02:17 Follow up: Response: No adverse reaction; No change in condition; Pain is unchanged, pf1 physician notified; RASS: Alert and Calm (0) 02:52 Drug: DuoNeb (albuterol 2.5 mg, ipratropium 0.5 mg) (3:1) (2.5 mg - 0.5 mg) 3 ml Route: pf1 Nebulizer; 02:56 Follow up: Response: No adverse reaction; Marked relief of symptoms pf1 Medication: 01:40 VIS not applicable for this client. pf1 Outcome: 02:49 Discharge ordered by MD. rt 03:07 Discharged to home ambulatory, with family. pf1 03:07 Condition: improved 03:07 Discharge instructions given to patient, family, Instructed on discharge instructions, follow up and referral plans. Demonstrated understanding of instructions, follow-up care, medications, Prescriptions given X 2. 03:08 Patient left the ED. pf1 Signatures: Pan Abel Jessica ja2 Jennifer Bright RN RN vc1 Alejandro Gilbert MD MD rt Zaida boyd RN RN pf1 Corrections: (The following items were deleted from the chart) 00:41 00:40 Allergies: tramadol; vc1 vc1
--- NOTE | 2022-11-27 02:49 | EDPHYS ---
Physician Documentation [facility] Name: Ashlyn Saldana Age: 57 yrs Sex: Female : 1965 Arrival Date: 11/27/2022 Time: 00:12 Bed 26 Private MD: ED Physician Alejandro Gilbert HPI: 11/27 01:16 This 57 yrs old Female presents to ER via Ambulatory with complaints of rt Breathing Difficulty. 01:16 Patient is most about a pack a day presents to the ED with difficulty breathing. She rt states that been going for about a week. Worsening today. States that she has pain with coughing, deep inspiration. Denies productive cough. Denies other acute complaints at this time, symptoms are moderate in severity, no other aggravating alleviating factors.. Historical: - Allergies: 00:40 Codeine; vc1 00:40 Darvocet-N 100; vc1 00:40 Morphine; vc1 00:40 PENICILLINS; vc1 - Home Meds: 00:40 None [Active]; vc1 - PMHx: 00:40 abscess; Tachycardia; vc1 - PSHx: 00:40 None; vc1 - Immunization history:: Client reports receiving the 2nd dose of the Covid vaccine. - Social history:: Smoking status: Patient reports the use of cigarette tobacco products, smokes one pack cigarettes per day. - Family history:: not pertinent. ROS: 01:16 Constitutional: Negative for fever, chills, and weight loss, Neck: Negative for injury, rt pain, and swelling, Abdomen/GI: Negative for abdominal pain, nausea, vomiting, diarrhea, and constipation, MS/Extremity: Negative for injury and deformity, Skin: Negative for injury, rash, and discoloration, Neuro: Negative for headache, weakness, numbness, tingling, and seizure, Psych: Negative for depression, anxiety, suicide ideation, homicidal ideation, and hallucinations. 01:16 Cardiovascular: Positive for Pleuritic chest pain, negative for edema. 01:16 Respiratory: Positive for cough, shortness of breath. Exam: 01:16 Constitutional: This is a well developed, well nourished patient who is awake, alert, rt and in no acute distress. Head/Face: Normocephalic, atraumatic. Chest/axilla: Normal chest wall appearance and motion. Nontender with no deformity. No lesions are appreciated. Cardiovascular: Regular rate and rhythm with a normal S1 and S2. No gallops, murmurs, or rubs. Normal PMI, no JVD. No pulse deficits. Abdomen/GI: Soft, non-tender, with normal bowel sounds. No distension or tympany. No guarding or rebound. No evidence of tenderness throughout. Skin: Warm, dry with normal turgor. Normal color with no rashes, no lesions, and no evidence of cellulitis. MS/ Extremity: Pulses equal, no cyanosis. Neurovascular intact. Full, normal range of motion. Neuro: Awake and alert, GCS 15, oriented to person, place, time, and situation. Cranial nerves II-XII grossly intact. Motor strength 5/5 in all extremities. Sensory grossly intact. Cerebellar exam normal. Normal gait. Psych: Awake, alert, with orientation to person, place and time. Behavior, mood, and affect are within normal limits. 01:16 Respiratory: Faint wheezes, diminished breath sounds on all lung jakcman, no respiratory distress. 01:33 ECG was reviewed by the Attending Physician. rt Vital Signs: 00:35 BP 97 / 56; Pulse 114; Resp 18; Temp 98.7; Pulse Ox 98% ; Weight 59.42 kg; Height 5 ft. vc1 0 in. (152.40 cm); 01:00 BP 142 / 105; Pulse 91; Resp 20; Pulse Ox 96% on R/A; Pain 7/10; pf1 02:00 BP 107 / 68; Pulse 102; Resp 20; Pulse Ox 97% on R/A; Pain 7/10; pf1 02:55 BP 109 / 72; Pulse 93; Resp 18; Temp 98.2; Pulse Ox 100% on R/A; Pain 0/10; pf1 00:35 Body Mass Index 25.58 (59.42 kg, 152.40 cm) vc1 MDM: 00:45 Patient medically screened. rt 03:02 Differential diagnosis: Pneumonia, pneumothorax, pulmonary embolism, congestive heart rt failure, bronchospasm. Antibiotic administration: Not indicated, the patient does not have an appreciated infiltrate. Data reviewed: vital signs, nurses notes, old medical records, lab test result(s), EKG, radiologic studies. I considered the following discharge prescriptions or medication management in the emergency department Medications were administered in the Emergency Department. See MAR. Independent interpretation of the following test(s) in the Emergency Department X-Ray: My interpretation is No consolidation seen on my interpretation of the chest x-ray images. Test considered but Not performed: CT: D-dimer negative, CT angiogram not indicated.. Care significantly affected by the following Social Determinants of Health: Tobacco abuse. Counseling: I had a detailed discussion with the patient and/or guardian regarding: the historical points, exam findings, and any diagnostic results supporting the discharge/admit diagnosis, lab results, radiology results, the need for outpatient follow up, smoking cessation. 11/27 00:58 Order name: CBC with Diff rt 11/27 00:58 Order name: CMP rt 11/27 00:58 Order name: D-Dimer rt 11/27 00:58 Order name: Troponin High Sensitivity rt 11/27 00:58 Order name: BNP rt 11/27 00:58 Order name: EKG; Complete Time: 00:58 rt 11/27 00:58 Order name: EKG - Nurse/Tech; Complete Time: 01:25 rt 11/27 00:58 Order name: Chest Single View XRAY rt 11/27 02:00 Order name: CBC with Automated Diff; Complete Time: 02:04 EDMS 11/27 02:06 Order name: D-Dimer; Complete Time: 02:28 EDMS 11/27 02:24 Order name: Comprehensive Metabolic Panel; Complete Time: 02:28 EDMS 11/27 02:24 Order name: Troponin High Sensitivity; Complete Time: 02:28 EDMS 11/27 02:24 Order name: NT PRO-BNP; Complete Time: 02:28 EDMS EC:33 Rate is 104 beats/min. Rhythm is regular, Sinus tachycardia with No ectopy. QRS [place] is rt Normal. SC interval is normal. QRS interval is normal. QT interval is normal. No Q waves. T waves are Normal. No ST changes noted. Administered Medications: 01:30 Drug: DuoNeb (albuterol 2.5 mg, ipratropium 0.5 mg) (3:1) (2.5 mg - 0.5 mg) 3 ml Route: pf1 Nebulizer; 02:17 Follow up: Response: No adverse reaction; Marked relief of symptoms pf1 01:55 Drug: SOLU-Medrol (methylPrednisoLONE) 125 mg Route: IVP; Site: right antecubital; pf1 02:17 Follow up: Response: No adverse reaction; Marked relief of symptoms pf1 01:55 Drug: Ketorolac 15 mg Route: IVP; Site: right antecubital; pf1 02:17 Follow up: Response: No adverse reaction; No change in condition; Pain is unchanged, pf1 physician notified; RASS: Alert and Calm (0) 02:52 Drug: DuoNeb (albuterol 2.5 mg, ipratropium 0.5 mg) (3:1) (2.5 mg - 0.5 mg) 3 ml Route: pf1 Nebulizer; 02:56 Follow up: Response: No adverse reaction; Marked relief of symptoms pf1 Disposition Summary: 11/27/22 02:49 Discharge Ordered Location: Home rt Problem: new rt Symptoms: have improved rt Condition: Stable rt Diagnosis - Acute bronchitis, unspecified rt Followup: rt - With: Private Physician - When: 2 - 3 days - Reason: Discharge Instructions: - Discharge Summary Sheet rt - Acute Bronchitis, Adult rt Forms: - Medication Reconciliation Form rt - Thank You Letter rt - Antibiotic Education rt - Prescription Opioid Use rt - Family Work Release pf1 Prescriptions: - albuterol sulfate 90 mcg/actuation Inhalation HFA aerosol inhaler - inhale 2 puff by INHALATION route every 4 hours; 2 Inhaler; Refills: 0, Product rt Selection Permitted - Prednisone 20 mg Oral Tablet - take 2 tablets by ORAL route once daily for 5 days; 10 tablet; Refills: 0, rt Product Selection Permitted Signatures: Dispatcher [employer] [id number] Jennifer Bright RN RN vc1 Alejandro Glibert MD MD rt Zaida boyd RN RN pf1 Corrections: (The following items were deleted from the chart) 00:41 00:40 Allergies: tramadol; vc1 vc1
[2022-11-27 03:36] VITALS: BP 109/72; TEMP 98.2; O2SAT 100
--- NOTE | 2022-11-27 10:02 | RAD REPORT ---
EXAM DESCRIPTION: RAD - Chest Single View - 11/27/2022 1:17 am CLINICAL HISTORY: Dyspnea.. TECHNIQUE: AP portable chest x-ray upright on 11/27/2022, at 01: 13. COMPARISON: None. FINDINGS: Heart: Normal size and configuration. Mediastinal Structures: Normal and midline.. Lung Barrett: No active disease. Pulmonary Vascularity: Normal. Pleural Space: No active disease. Bony Structures: Normal. IMPRESSION: Normal study. Electronically signed by: Farhat Sawyer MD 11/27/2022 1:30 AM DIFFUSER OPERATOR Due to temporary technical issues with the PACS/Fluency reporting system, reports are being signed by the in house radiologists without review as a courtesy to insure prompt reporting. The interpreting radiologist is fully responsible for the content of the report.
--- NOTE | 2022-11-27 14:28 | EKG ---
Test Date: 2022-11-27 Test Time: 01:23:25 Radiation Officer: SNEHAL MEASUREMENT RESULTS: Intervals: Rate: 104 [place]: 160 QRSD: 66 QT: 348 QTc: 457 [place]: P: 63 [place]: 160 QRS: 70 T: 69 INTERPRETIVE STATEMENTS: Sinus tachycardia Otherwise normal ECG Compared to ECG 12/19/2018 12:32:59 Sinus rhythm no longer present Electronically Signed On 11-27-22 14:28:05 [employer] by Tao Ulloa
== END 2022-11-27 03:08 | disposition home or self-care (01) ==
LOC: ER 00:08
DX: J20.9 Acute bronchitis, unspecified (principal); F17.210 Nicotine dependence, cigarettes, uncomplicated; Z88.0 Allergy status to penicillin; Z88.5 Allergy status to narcotic agent
CPT/HCPCS: 93005; 85025; 36415; 85379; 84484; 80053; 83880; 71045; 94640; 96375; 96374; 99285; J7613 ×3; J7644 ×2; J2930

== ENCOUNTER 2025-05-03 14:01 | Emergency (ER) | payer BC ==
--- OUTSIDE RECORDS SUMMARY | 2025-05-03 14:04 | XMS REPORT | Clinical Summary ---
Author Name Unknown Organization [facility] Address [address] [place] [address] Care Team Providers Care Risk Analyst Name Role Phone Cortez Rodarte [email or web address] Sade Verdugo MD Primary Care Prov ider Allergies Active Allergy Reactions Criticality Noted Date Comments Codeine Itching,Palpitations ,Shor tness Of Breath,Swelling High 05/06/2020 Morphine Hives,Itching,Other (See Comments),Palpitations,Sh ortness Of Breath,Swelling High 05/10/2020 Penicillin Diarrhea,Hives,Itchi ng,Pa lpitations,Shortness Of Breath,Swelling High 05/10/2020 Propoxyphene N-Acetaminophen Anxiety,Hiv es,Itching,Pal pitations,Shortness Of Breath,Swelling High 05/10/2020 Medications Vitamin D2 1,250 mcg (50,000 unit) capsule TAKE ONE (1) CAPSULE(S) BY MOUTH EVERY 7 DAYS. 02/16/2020 Active phentermine (ADIPEX-P) 37.5 mg tablet TAKE ONE (1) TABLET(S) BY MOUTH ONCE A DAY. 04/30/2020 Active Active Problems Problem Noted Date Diagnosed Date Lump in right breast 05/17/2020 Surgical History Surgery Date Site/Laterality Comments APPENDECTOMY 09/27/1992 - 09/26/1993 CHOLECYSTECTOMY 09/27/2012 - 09/26/2013 REDUCTION MAMMAPLASTY 09/27/2013 - 09/26/2014 Bilateral Medical History Medical History Date Comments Unspecified lump in unspecified breast May 02 Polyp of colon Begnign Renal stone 2016 Diabetes mellitus 2017 Anxiety 2019 Family History Medical History Relation Name Comments Breast cancer Brother Akil rangel af ter 9 months of diagnosis of non manny lymphoma at age ,31 Lymphoma Brother Akil rangel wit hin few months of dianosis Lung cancer Maternal Grandfather Diego pena Passed at age 67 Breast cancer Mother Angel rodriguez af ter only six months of diagnosis of non manny lymphoma at age 58 Lymphoma Mother Angel rodriguez wit hin few months of diagnosis Breast cancer Paternal Aunt Lizbeth york Passed at age 62 Relation Name Status Comments Brother Akil rangel Maternal Grandfather Diego pena Mother Angel rodriguez Paternal Aunt Lizbeth york Social History Tobacco Use Types Packs/Day Years Used Date Smoking Tobacco: Every Day Cigarettes 0.5 28 Tobacco Cessation:Ready to Q uit: No Alcohol Use Standard Drinks/Week Comments Not Currently 0 (1 standard drink = 0.6 oz pur e alcohol) Comments Unknown Sex and Gender Information Value Date Recorded Sex Assigned at Not on file Legal Sex Female 11:38 AM CDT Gender Identity Not on file Sexual Orientation Not on file Obstetrics History Para Term AB IAB SAB Ectopic Multiple Livin g Live Births 6 2 4 3 1 Date Outcome GA Total Labor Labor/2nd/3rd Weight Sex Type Anes PTL Anita A1 A5 Name Clin Para Para Ectopic SAB SAB SAB Comments Menarche - age 17 Menopause - age 49 Parity - age 22, - none OCP - none Hormones - none Plan of Treatment Health Maintenance Due Date Last Done Comments Pneumococcal Vaccine: 50+ Years (1 of 1 - PCV) 016 COVID-19 Vaccine ( - 2023- season) 2024 Influenza Vaccine (#1) 2025 Insurance [facility] H[facility] BLUE/BLUE ESSENTIALS [facility] H[facility] BLUE/BLUE ESSENTIALS Care Teams Risk Analyst Relationship Specialty Start Date End Date Cortez Rodarte MD [email or web address] PCP - External Referring Family Practice 05/02/20 Sade Verdugo MD [address] [place] [id number] [email or web address] PCP - General Breast Surgery 05/06/20
[2025-05-03 15:11] LABS: Absolute Lymphocytes (CBC) 2.4 K/uL (0.7-4.9); Hematocrit 40.0 % (36.0-45.0); Hemoglobin 13.6 g/dL (12.0-15.0); MCH 33.1 pg (27.0-35.0); MCHC 33.9 g/dL (32.0-36.0); MCV 97.6 fL (80-100); MPV 6.8 fL (7.6-11.3); Nucleated RBC Absolute Count 0.0 (0-0); Nucleated Red Blood Cells % 0.1 % (0-0); RBC Red Blood Cell Count 4.10 M/uL (3.86-4.86); White Blood Count 14.10 thou/uL (4.3-10.9)
[2025-05-03] MEDS ORDERED: FENTANYL CITR 100 MCG/2 ML ONE (15:23)
[2025-05-03] MEDS ORDERED: KETOROLAC 30 MG/ML INJ ONE (16:18)
[2025-05-03] MEDS ORDERED: ACETAMINOPHEN 500 MG TAB ONE (16:19)
[2025-05-03 16:29] LABS: Anion Gap 9.0 mEq/L (5.0-15.0); BUN Blood Urea Nitrogen 11.0 mg/dL (7-18); Glucose Level 107.0 mg/dL (74-106); Potassium 4.0 mEq/L (3.5-5.1)
--- NOTE | 2025-05-03 17:54 | RAD REPORT ---
EXAM: CT Soft Tissue Neck W/Contr INDICATION: [facility] MAIN no FACIAL PAIN Bed Name: 13 TECHNIQUE: Helical CT examination of the neck with IV contrast. Not reported Sagittal and coronal ref ormations were generated. This exam was performed according to our departmental dose-optimization program, which includes automated exposure control, adjustment of the mA and/or kV according to patie nt size and/or use of iterative reconstruction technique. COMPARISON: None. FINDINGS: Mucosal spaces: Asymmetric soft tissue swelling and adjacent subcutaneous inflammatory changes along the right lower jaw and the facial muscles overlying the right mandibular body buccal surface. No appreciable fluid collections. Nasopharynx, oropharynx, oral cavity, larynx and hypopharynx are sybil l. No suspicious masses. Epiglottis is normal in configuration. True vocal cords cords are normally situated. Piriform sinuses are well-aerated. Small periapical collection with surrounding sclerosis along the root of the right second mandibular premolar, see sagittal image 51. Other scattered carious changes, with small periapical collection at the roots of the left maxillary second molar. Lymph Nodes: No pathologic appearing cervical lymph nodes. Salivary Glands: Unremarkable. Thyroid Gland: Normal Included Intracranial Structures: Normal Included Orbits: Normal Paranasal Sinuses: Predominantly clear Tympanomastoid Cavities: Normal Vascular Structures: Normal Osseous Structures: No acute osseous abnormality. Included Lung Apices: Normal IMPRESSION: Inflammatory changes along the buccal surface of the right mandibular body without an appreciable flu id collection. Small periapical collection with surrounding sclerosis along the root of the right second mandibular premolar, suggesting odontogenic origin of the inflammatory process.
--- NOTE | 2025-05-03 18:09 | ER ---
Nurse's Notes [facility] Name: Ashlyn Saldana Age: 59 yrs Sex: Female : 1965 Arrival Date: 05/03/2025 Time: 14:01 Bed 13 Private MD: Diagnosis: Dental caries, unspecified;Dental infection Presentation: 05/03 14:26 Chief complaint: Patient states: 2 days ago right face/lower jaw started swelling and me1 hurting and has continued to worsen. States pain is 10/10 and that she thinks the pain being so bad is making her feel sob. Coronavirus screen: Vaccine status: Patient reports receiving the 2nd dose of the covid vaccine. Ebola Screen: No symptoms or risks identified at this time. Initial Sepsis Screen: Does the patient meet any 2 criteria? HR > 90 bpm. Does the patient have a suspected source of infection? No. Patient's initial sepsis screen is negative. Risk Assessment: Do you want to hurt yourself or someone else? Patient reports no desire to harm self or others. Onset of symptoms was May 01, 2020. 14:26 Method Of Arrival: Ambulatory me1 14:26 Acuity: HITESH 3 me1 Historical: - Allergies: 14:28 Codeine; me1 14:28 Darvocet-N 100; me1 14:28 Morphine; me1 14:28 PENICILLINS; me1 - PMHx: 14:28 abscess; Tachycardia; me1 - PSHx: 14:28 Appendectomy; Repair of inguinal hernia; section; Ligation of fallopian tube; me1 Cholecystectomy; - Immunization history:: Adult Immunizations up to date. - Infectious Disease History:: Denies. - Social history:: Smoking status: Patient reports the use of cigarette tobacco products, smokes one pack cigarettes per day. Screenin:11 [facility] ED Fall Risk Assessment (Adult) History of falling in the last 3 months, kc6 including since admission No falls in past 3 months (0 pts) Confusion or Disorientation No (0 pts) Intoxicated or Sedated No (0 pts) Impaired Gait No (0 pts) Mobility Assist Device Used No (0 pt) Altered Elimination No (0 pt) Score/Fall Risk Level 0 - 2 = Low Risk Oriented to surroundings. Abuse screen: Denies threats or abuse. Denies injuries from another. Nutritional screening: No deficits noted. Tuberculosis screening: No symptoms or risk factors identified. Assessment: 15:10 General: Appears in no apparent distress. uncomfortable, well groomed, well developed, kc6 Behavior is calm, cooperative, appropriate for age. Pain: Complains of pain in mouth and neck. Neuro: Level of Consciousness is awake, alert, obeys commands, Oriented to person, place, time, situation, Appropriate for age. Cardiovascular: Capillary refill < 3 seconds Rhythm is regular. Respiratory: Airway is patent Trachea midline Respiratory effort is even, unlabored, Respiratory pattern is regular, symmetrical, Breath sounds are clear bilaterally. GI: No signs and/or symptoms were reported involving the gastrointestinal system. : No signs and/or symptoms were reported regarding the genitourinary system. EENT: No signs and/or symptoms were reported regarding the EENT system. Derm: No signs and/or symptoms reported regarding the dermatologic system. Skin is intact, is healthy with good turgor, Skin is pink, warm \T\ dry. Musculoskeletal: Circulation, motion, and sensation intact. Range of motion: intact in all extremities, Swelling present in right submandibular area. 16:10 Reassessment: Patient appears in no apparent distress at this time. No changes from kc6 previously documented assessment. Patient and/or family updated on plan of care and expected duration. Pain level reassessed. Patient is alert, oriented x 3, equal unlabored respirations, skin warm/dry/pink. 17:10 Reassessment: Patient appears in no apparent distress at this time. No changes from kc6 previously documented assessment. Patient and/or family updated on plan of care and expected duration. Pain level reassessed. Patient is alert, oriented x 3, equal unlabored respirations, skin warm/dry/pink. 18:10 Reassessment: Patient appears in no apparent distress at this time. No changes from kc6 previously documented assessment. Patient and/or family updated on plan of care and expected duration. Pain level reassessed. Patient is alert, oriented x 3, equal unlabored respirations, skin warm/dry/pink. Vital Signs: 14:26 BP 117 / 81; Pulse 114; Resp 20; Temp 98; Pulse Ox 98% ; Weight 61.23 kg; Height 5 ft. me1 0 in. ; Pain 10/10; 15:11 BP 134 / 72; Pulse 87; Resp 17 S; Pulse Ox 97% on R/A; kc6 16:06 BP 130 / 61; Pulse 90; Resp 18 S; Pulse Ox 99% on R/A; kc6 17:01 BP 127 / 70; Pulse 80; Resp 16 S; Pulse Ox 97% on R/A; kc6 14:26 Body Mass Index 26.37 (61.23 kg, 152.4 cm) me1 14:26 Pain Scale: Adult [facility] [place] Course: 14:05 Patient arrived in ED. al6 14:11 Devaughn Busch, SHIKHA is PHCP. cr8 14:11 Andrade Lema MD is Attending Physician. cr8 14:28 Triage completed. me1 14:28 Arm band placed on Patient placed in an exam room. me1 14:29 Gerri Plata, RN is Primary Nurse. kc6 15:10 Patient has correct armband on for positive identification. Bed in low position. Call kc6 light in reach. Side rails up X 1. Adult w/ patient. line mechanic on. Pulse ox on. NIBP on. Door closed. Noise minimized. Lights dimmed. Pillow given. Verbal reassurance given. 15:10 Initial lab(s) drawn, by me, by ED staff, sent to lab. Inserted saline lock: 20 gauge kc6 in right antecubital area, using aseptic technique. Blood collected. Flushed with 10 mL NS. Patient maintains SpO2 saturation greater than 95% on room air. 16:51 CT Soft Tissue Neck W/contr In Process Unspecified. EDMS 18:36 No provider procedures requiring assistance completed. IV discontinued, intact, kc6 bleeding controlled, No redness/swelling at site. Pressure dressing applied. Administered Medications: 14:59 Not Given (patient allergyy): morphineor iv 2 mg IVP once over 4 mins kc6 15:32 Drug: fentaNYL (PF) IVP 25 mcg IVP once Route: IVP; Site: right antecubital; kc6 16:05 Follow up: Response: No adverse reaction; Pain is unchanged, physician notified; RASS: kc6 Alert and Calm (0) 16:28 Drug: Ketorolac IVP 15 mg IVP once Route: IVP; Site: right antecubital; kc6 16:59 Follow up: Response: No adverse reaction kc6 16:28 Drug: Acetaminophen PO 1000 mg PO once Route: PO; kc6 16:59 Follow up: Response: No adverse reaction kc6 18:35 Drug: Clindamycin PO 300 mg PO once Route: PO; kc6 Outcome: 18:09 Discharge ordered by MD. ramos 18:36 Patient left the ED. pa1 Signatures: Dispatcher [employer] Gerri Camacho RN RN kc6 Nadine Mazariegos RN RN pa1 Edwina Pena wa6 Devaughn Busch NP NP cr8
--- NOTE | 2025-05-03 18:09 | EDPHYS ---
Physician Documentation [facility] Name: Ashlyn Saldana Age: 59 yrs Sex: Female : 1965 Arrival Date: 05/03/2025 Time: 14:01 Bed 13 Private MD: ED Physician Andrade Lema HPI: 05/03 14:42 This 59 yrs old Female presents to ER via Ambulatory with complaints of Facial cr8 Swelling, Breathing Difficulty. 14:42 Patient is a 6-year-old female that comes the emergency room complaining of right lower cr8 face swelling and feeling short of breath. This began Wednesday. Reports that she is also having dental pain. She has had no fever nausea vomiting. She is not having difficulty swallowing but states it hurts to open her mouth.. Historical: - Allergies: 14:28 Codeine; me1 14:28 Darvocet-N 100; me1 14:28 Morphine; me1 14:28 PENICILLINS; me1 - PMHx: 14:28 abscess; Tachycardia; me1 - PSHx: 14:28 Appendectomy; Repair of inguinal hernia; section; Ligation of fallopian tube; me1 Cholecystectomy; - Immunization history:: Adult Immunizations up to date. - Infectious Disease History:: Denies. - Social history:: Smoking status: Patient reports the use of cigarette tobacco products, smokes one pack cigarettes per day. ROS: 16:47 Constitutional: as per HPI cr8 Exam: 16:47 Constitutional: This is a well developed, well nourished patient who is awake, alert, cr8 and in no acute distress. Head/Face: Normocephalic, atraumatic. Skin: Warm, dry with normal turgor. Normal color with no rashes, no lesions, and no evidence of cellulitis. Neuro: Awake and alert, GCS 15, oriented to person, place, time, and situation. Cranial nerves II-XII grossly intact. Motor strength 5/5 in all extremities. Sensory grossly intact. 16:47 Neck: Trachea midline, no thyromegaly or masses palpated, and no cervical lymphadenopathy. Supple, full range of motion without nuchal rigidity. Tenderness to the right side of the neck, palpation. There is no warmth erythema or edema to the right side of the neck. There is no masses palpated. No stridor present. Respiratory: Lungs have equal breath sounds bilaterally, clear to auscultation. No rales, rhonchi or wheezes noted. No increased work of breathing. 16:47 ENT: Dental exam: pain, that is moderate, specifically in the lower right second molar (#31), Right mandibular edema with tenderness No sublingual edema Mild tenderness along the right side of her neck but there is no edema warmth erythema overlying the neck. Vital Signs: 14:26 BP 117 / 81; Pulse 114; Resp 20; Temp 98; Pulse Ox 98% ; Weight 61.23 kg; Height 5 ft. me1 0 in. ; Pain 10/10; 15:11 BP 134 / 72; Pulse 87; Resp 17 S; Pulse Ox 97% on R/A; kc6 16:06 BP 130 / 61; Pulse 90; Resp 18 S; Pulse Ox 99% on R/A; kc6 17:01 BP 127 / 70; Pulse 80; Resp 16 S; Pulse Ox 97% on R/A; kc6 14:26 Body Mass Index 26.37 (61.23 kg, 152.4 cm) me1 14:26 Pain Scale: Adult me1 MDM: 14:25 Medical Screening Exam initiated cr8 18:52 Data reviewed: vital signs, nurses notes, lab test result(s), CBC, electrolytes, cr8 radiologic studies, CT scan. ED course: Patient presents for dental pain due to suspected dental devi. Patient not immunosuppressed, afebrile and well appearing with patent airway, have low suspicfion for deep space infection or any concern for airway compromise. Based on history, physical, and work up. No evidence of tooth fracture, avulsion, or bleeding socket. No evidence of RPA, BARIATRIC PROGRAM COORDINATOR, Ludwigs angina. However patient reports severe pain and that she is having trouble breathing. Went ahead and did a CT of the neck to evaluate for deep space infection airway narrowing. Patient required fentanyl 25 mics IV for pain. CT came back and did not show any evidence of deep space infection, Hung angina or airway narrowing. What it showed was possible periapical abscess and dental infection. I went ahead and discussed this with the patient. Explained we will place her on clindamycin tramadol which she has taken before at home and she needs a follow-up with a dentist. She remained stable. No evidence of emergent condition during her evaluation.. 05/03 14:30 Order name: CBC with Diff; Complete Time: 15:20 cr8 05/03 14:30 Order name: BMP; Complete Time: 16:30 cr8 05/03 14:30 Order name: CT Soft Tissue Neck W/contr; Complete Time: 18:06 cr8 05/03 14:30 Order name: Saline Lock; Complete Time: 14:59 cr8 Administered Medications: 14:59 Not Given (patient allergyy): morphineor iv 2 mg IVP once over 4 mins kc6 15:32 Drug: fentaNYL (PF) IVP 25 mcg IVP once Route: IVP; Site: right antecubital; kc6 16:05 Follow up: Response: No adverse reaction; Pain is unchanged, physician notified; RASS: kc6 Alert and Calm (0) 16:28 Drug: Ketorolac IVP 15 mg IVP once Route: IVP; Site: right antecubital; kc6 16:59 Follow up: Response: No adverse reaction kc6 16:28 Drug: Acetaminophen PO 1000 mg PO once Route: PO; kc6 16:59 Follow up: Response: No adverse reaction kc6 18:35 Drug: Clindamycin PO 300 mg PO once Route: PO; kc6 Disposition Summary: 05/03/25 18:09 Discharge Ordered Notes: Location: Home cr8 Condition: Stable cr8 Diagnosis - Dental caries, unspecified cr8 - Dental infection cr8 Followup: cr8 - With: Emergency Department - When: As needed - Reason: Fever > 102 F, Trouble breathing, Worsening of condition Followup: cr8 - With: Private Physician - When: 2 - 3 days - Reason: Recheck today's complaints Discharge Instructions: - Discharge Summary Sheet cr8 - Dental Caries, Adult cr8 - Dental Pain cr8 Forms: - Work release form kc6 - Family Work Release kc6 - Medication Reconciliation Form cr8 - Antibiotic Education cr8 - Prescription Opioid Use cr8 - Patient Portal Instructions cr8 - Leadership Thank You Letter cr8 Prescriptions: - Clindamycin HCl 300 mg Oral Capsule - take 1 capsule ORAL route every 6 hours for 10 days; 40 capsule; Refills: 0, cr8 Product Selection Permitted - Tramadol 50 mg Oral Tablet - take 1 tablet ORAL route every 8 hours as needed; 12 tablet; Refills: 0, cr8 Product Selection Permitted Signatures: Dispatcher [employer] Gerri Camacho RN RN kc6 Nadine Mazariegos RN RN me1 Devaughn Busch NP PRINCIPAL ELECTRICAL ENGINEER cr8 Corrections: (The following items were deleted from the chart) 19:47 18:52 ED course: Patient presents for dental pain due to suspected dental devi. Patient cr8 not immunosuppressed, afebrile and well appearing with patent airway, have low suspicfion for deep space infection or any concern for airway compromise. Based on history, physical, and work up. No evidence of tooth fracture, avulsion, or bleeding socket. No evidence of RPA, BARIATRIC PROGRAM COORDINATOR, Ludwigs angina, periapical abscess.. cr8
[2025-05-03 19:08] VITALS: TEMP 98.4
[2025-05-03 19:12] VITALS: BP 129/72; O2SAT 96
== END 2025-05-03 18:36 | disposition home or self-care (01) ==
LOC: ER 14:01
DX: K04.7 Periapical abscess without sinus (principal); K02.9 Dental caries, unspecified; F17.210 Nicotine dependence, cigarettes, uncomplicated
CPT/HCPCS: 85025; 80048; 36415; 70491; 96375; 96374; 99285; Q9967; J3010